=== PATIENT | female | born 1995 ===

== ENCOUNTER 2017-04-12 12:33 | Emergency (ER) | payer BC ==
[2017-04-12 13:56] VITALS: BP 134/88
--- NOTE | 2017-04-12 14:08 | UC ---
UC General HPI - HPI Summary HPI Summary: pt states she had a sudden onset of flu symptoms yesterday - History of Current Complaint Chief Complaint: UCGeneralIllness Stated Complaint: FLU LIKE SYMPTOMS Time Seen by Provider: 04/12/17 13:58 Hx Obtained From: Patient Hx Last Menstrual Period: IUD Onset/Duration: Sudden Onset Timing: Constant Onset Severity: Moderate Current Severity: Moderate Pain Intensity: 4 Pain Location at: genralized bodyaches Associated Signs & Symptoms: Positive: Cough, Fever, Headache, Nausea, Other - bodyaches, chills, head and chest congestion - Allergy/Home Medications Allergies/Adverse Reactions: Allergies Allergy/AdvReac Type Severity Reaction Status Date / Time lactose Allergy Diarrhea Verified 04/12/17 13:53 or Constipation Home Medications: Home Medications RX: Ibuprofen TAB* [Advil TAB*] 400 mg PO Q6H PRN 04/12/17 [History Confirmed ] RX: Levonorgestrel (Iud) [Mirena IUD] 20 mcg IU ONCE 04/12/17 [History Confirmed 04/12/17] PMH/Surg Hx/FS Hx/Imm Hx Previously Healthy: Yes - Surgical History Surgical History: Yes Surgery Procedure, Year, and Place: D&C, 2016, [facility] - Social History Alcohol Use: Occasionally Substance Use Type: None Smoking Status (MU): Current Some Day Smoker Type: Cigars Review of Systems Constitutional: Fever, Other - bodyaches Skin: Negative Eyes: Negative ENT: Sinus Congestion Respiratory: Cough, Other - no sob or wheezing Cardiovascular: Negative Gastrointestinal: Nausea, Other - no v/d or abdominal pain Genitourinary: Negative Neurological: Headache All Other Systems Reviewed And Are Negative: Yes Physical Exam Triage Information Reviewed: Yes Appearance: Well-Appearing Vital Signs: Initial Vital Signs Temp 98.8 F 04/12/17 13:49 Pulse 80 04/12/17 13:49 Resp 16 04/12/17 13:49 BP 134/88 04/12/17 13:49 Pulse Ox 100 04/12/17 13:49 Vital Signs Reviewed: Yes Eye Exam: Normal Eyes: Positive: Conjunctiva Clear ENT: Positive: Nasal congestion, TMs normal. Negative: Tonsillar swelling, Tonsillar exudate Neck: Positive: Supple, Nontender, No Lymphadenopathy. Negative: Nuchal Rigidity Respiratory: Positive: Lungs clear, Normal breath sounds, No respiratory distress, Other: - NPC Cardiovascular: Positive: RRR, No Murmur Abdomen Description: Positive: Nontender, No Organomegaly, Soft Bowel Sounds: Positive: Present Neurological: Positive: Alert Skin Exam: Normal Course/Dx - Course Course Of Treatment: influenza A +, non toxic. will tx with tamiflu - Differential Dx - Multi-Symptom Provider Diagnoses: Influenza A Discharge - Discharge Plan Condition: Stable Disposition: HOME Prescriptions: Oseltamivir SUSP 75 MG dose* [Tamiflu SUSP 75 MG dose*] 75 mg PO BID 5 Days #10 oral.[email or web address] Patient Education Materials: Influenza (DC) Forms: *Work Release Referrals: [facility] [Outside] - As Soon As Possible
[2017-04-12] MEDS ORDERED: Ibuprofen TAB* 400 MG PO ONE (14:09)
[2017-04-12] MEDS ORDERED: Ibuprofen TAB* 400 MG ONE (14:12)
== END 2017-04-12 14:49 | disposition home or self-care (01) ==
LOC: UCCORT 12:33
DX: J10.1 Influenza due to other identified influenza virus with other respiratory manifestations (principal); Z72.0 Tobacco use
CPT/HCPCS: 87502; 99202; A9270-GY; G0463

== ENCOUNTER 2019-04-19 09:22 | Emergency (ER) | payer BC ==
[2019-04-19 09:44] VITALS: BP 121/77
[2019-04-19 11:29] LABS: Influenza A Molecular Negative (Negative); Influenza B Molecular Negative (Negative)
--- NOTE | 2019-04-19 11:37 | UC ---
FLU HPI - HPI Summary HPI Summary: 23-year-old female presents with complaints of general malaise, fatigue, body aches, nasal congestion, postnasal drip, sore throat, and nonproductive cough. No measured fever however complains of chills. Reports some diarrhea however does have history of IBS. Denies ear pain, dysphagia, chest pain, shortness of breath, abdominal pain, nausea, or vomiting. - History of Current Complaint Chief Complaint: UCRespiratory Stated Complaint: BAD COUGH Time Seen by Provider: 04/19/19 10:57 Hx Obtained From: Patient Hx Last Menstrual Period: 04/09/2019 Pain Intensity: 0 - Allergy/Home Medications Allergies/Adverse Reactions: Allergies Allergy/AdvReac Type Severity Reaction Status Date / Time lactose AdvReac Diarrhea Verified 04/19/19 09:37 or Constipation Home Medications: Home Medications Ibs Med 1 cap PO BID 04/19/19 [History] PMH/Surg Hx/FS Hx/Imm Hx Previously Healthy: Yes - Denies significant PMH GI/ History: Other - IBS - Surgical History Surgical History: Yes Surgery Procedure, Year, and Place: D&C, 2016, [facility] - Family History Known Family History: Positive: Non-Contributory - Social History Occupation: Employed Full-time Lives: With Family Alcohol Use: Occasionally Substance Use Type: None Smoking Status (MU): Current Some Day Smoker Type: Cigars Amount Used/How Often: occasional- 2 weekly Review of Systems All Other Systems Reviewed And Are Negative: Yes Constitutional: Positive: Chills, Fatigue Eyes: Negative: Drainage, Eye Redness ENT: Positive: Sore Throat, Nasal Discharge, Sinus Congestion. Negative: Ear Ache, Sinus Pain/Tenderness Respiratory: Positive: Cough. Negative: Shortness Of Breath Cardiovascular: Negative: Chest Pain Gastrointestinal: Positive: Diarrhea. Negative: Abdominal Pain, Vomiting, Nausea Genitourinary: Positive: Negative Musculoskeletal: Positive: Myalgia Neurological/Mental Status: Positive: Negative Is Patient Immunocompromised?: No Physical Exam - Summary Physical Exam Summary: GENERAL APPEARANCE: Well developed, well nourished, alert and cooperative, and appears to be in no acute distress. EYES: Conjunctiva clear. No drainage. EARS: External auditory canals and tympanic membranes clear, hearing grossly intact. NOSE: Mild nasal congestion. No nasal discharge. THROAT: Pharyngeal erythema with post-nasal drip. No tonsilar inflammation, swelling, exudate, or lesions. Uvula midline. NECK: Neck supple, non-tender without lymphadenopathy. CARDIAC: Normal S1 and S2. No S3, S4 or murmurs. Rhythm is regular. There is no peripheral edema, cyanosis or pallor. Extremities are warm and well perfused. Capillary refill is less than 2 seconds. Peripheral pulses intact. LUNGS: Clear to auscultation without rales, rhonchi, wheezing or diminished breath sounds. Nonproductive cough. ABDOMEN: Positive bowel sounds. Soft, nondistended, nontender. No guarding or rebound. No masses or hepatosplenomegally. MUSKULOSKELETAL: ROM intact to all extremities. No joint erythema or tenderness. Normal muscular development. Normal gait. SKIN: Skin normal color, texture and turgor with no lesions or eruptions. Triage Information Reviewed: Yes Vital Signs: Initial Vital Signs Temp 98.4 F 04/19/19 09:39 Pulse 105 04/19/19 09:39 Resp 18 04/19/19 09:39 BP 121/77 04/19/19 09:39 Pulse Ox 96 04/19/19 09:39 Vital Signs Reviewed: Yes Flu Course/Dx - Course Course Of Treatment: 23-year-old female presents with complaints of general malaise, fatigue, body aches, nasal congestion, postnasal drip, sore throat, and nonproductive cough. No measured fever however complains of chills. Reports some diarrhea however does have history of IBS. Denies ear pain, dysphagia, chest pain, shortness of breath, abdominal pain, nausea, or vomiting. Afebrile. Vital signs stable. Patient had mild nasal congestion, normal TMs, pharyngeal erythema with postnasal drip, no tonsillar swelling or exudate, no cervical lymphadenopathy, bilateral breath sounds, dry nonproductive cough, and otherwise unremarkable exam. Rapid flu test was negative. Recommending symptomatic treatment for viral upper respiratory infection including prescriptions for fluticasone nasal spray 2 sprays each nostril once daily and Tessalon Perles one capsule every 8 hours as needed for cough. She is to return here in 5-7 days if symptoms are not improving. Anticipatory guidance warning symptoms reviewed with patient. Verbalizes understanding and agrees to plan of care. - Differential Dx/Diagnosis Differential Diagnosis/HQI/PQRI: Bronchitis, Influenza, Pneumonia, Upper Respiratory Infection Provider Diagnosis: Viral upper respiratory tract infection with cough Discharge ED - Sign-Out/Discharge Documenting (check all that apply): Patient Departure All imaging exams completed and their final reports reviewed: No Studies - Discharge Plan Condition: Stable Disposition: HOME Prescriptions: Benzonatate CAP* [Tessalon 100 MG CAP*] 100 mg PO TID PRN #21 cap PRN Reason: Cough Fluticasone NASAL SPRAY 50MCG* [Flonase NASAL SPRAY 50MCG*] 2 spray BOTH NARES DAILY #1 btl Patient Education Materials: Upper Respiratory Infection (ED) Forms: *Work Release Referrals: No Primary Care Phys,NOPCP [Primary Care Provider] - Additional Instructions: Your history and exam are consistent with a viral upper respiratory infection. Viral infections do not respond to antibiotics and are limited to the treatment of symptoms. Viral infections typically run their course in 7-10 days. Drink plenty of fluids to avoid dehydration especially if you are running any fever. Use a saline rinse kit such as Neti Pot or NeilMed at least twice a day to help thin secretions and promote drainage of the sinuses. Use fluticasone (Flonase) nasal spray 2 sprays each nostril once daily. Try an over the counter decongestant such as Sudafed for the nasal congestion. Take Tessalon Perles 1 capsule every 8 hours as needed for cough. Take over the counter acetaminophen (Tylenol) or ibuprofen (Advil, Motrin) according to directions as needed for pain or fever. Use salt water gargles several times a day if you have a sore throat. You may also use Chloraseptic spray or Cepacol lonzenges according to directions which contain a numbing medication and can provide some temporary relief from your sore throat. Return here or follow up with your primary care provider in 5-7 days if symptoms persist. Seek immediate medical attention in the emergency room if you have fever greater than 100.5 F despite taking acetaminophen or ibuprofen, have chest pain , difficulty breathing, are unable to swallow, or have any worsening of symptoms. - Billing Disposition and Condition Condition: STABLE Disposition: Home
== END 2019-04-19 11:53 | disposition home or self-care (01) ==
LOC: UCCORT 09:22
DX: J06.9 Acute upper respiratory infection, unspecified (principal); R05 Cough; R19.7 Diarrhea, unspecified; R09.82 Postnasal drip; F17.290 Nicotine dependence, other tobacco product, uncomplicated; Z91.011 Allergy to milk products
CPT/HCPCS: 99212; G0463